=== PATIENT | female | born 1960 | race Caucasian/White ===

== ENCOUNTER 2016-12-15 05:11 | Emergency (ER) | payer BC ==
[~2016-12-15] VITALS: Ht 170.2 cm; Wt 86.2 kg
[~2016-12-15 05:11] MED LIST: ACET1TAB43 PO; CALC-250 PO; CALC1TAB4 PO; ESTR1TAB27 PO; ESTRAD; FISH1CAP15 PO; IBUP-1773 PO; MDR10T; MEDR5TAB4 PO; OMEP-10; ROSU5TAB PO
--- OUTSIDE RECORDS SUMMARY | 2016-12-15 05:18 | XMS REPORT | Continuity of Care Document ---
Author Author [facility] Organization [facility] Address Unknown Phone Unavailable Allergies Active Description Code Type Severity Reaction Onset Reported/Identified Relationship to Patient Clinical Status Yes hydrocodone [id number] Drug Allergy Unknown N/A 08/12/2008 Yes hydrocodone [id number] Drug Allergy Moderate SEVERE GI UPSET 02/02/2016 Medications Problems Date Dx Coded Attending Type Code Diagnosis Diagnosed By 01/09/2015 Ot 401.9 01/09/2015 Ot 782.0 01/09/2015 Ot 782.3 01/09/2015 Ot 782.0 01/09/2015 Ot 723.1 01/09/2015 Ot 782.0 01/09/2015 FANY HA HADOOP ADMINISTRATOR Ot 627.1 01/09/2015 FANY HA HADOOP ADMINISTRATOR Ot V72.31 01/09/2015 FANY HA HADOOP ADMINISTRATOR Ot 610.0 01/09/2015 FANY HA HADOOP ADMINISTRATOR Ot 793.89 01/09/2015 THUAN MCPHERSON, BEVERLY J Ot 272.4 01/09/2015 THUAN MCPHERSON, BEVERLY J Ot 782.3 01/09/2015 THUAN MCPHERSON, BEVERLY J Ot V58.69 01/09/2015 THUAN MCPHERSON, BEVERLY J Ot V58.83 01/09/2015 THUAN MCPHERSON, BEVERLY J Ot 272.1 01/09/2015 THUAN MCPHERSON, BEVERLY J Ot 272.4 01/09/2015 THUAN MCPHERSON, BEVERLY J Ot 397.0 01/09/2015 THUAN MCPHERSON, BEVERLY J Ot 416.8 01/09/2015 THUAN MCPHERSON, BEVERLY J Ot 424.0 01/09/2015 THUAN MCPHERSON, BEVERLY J Ot 782.3 01/09/2015 FANY HA HADOOP ADMINISTRATOR Ot V76.12 01/30/2015 FANY HA HADOOP ADMINISTRATOR Ot V76.12 04/03/2015 CAMILA SHEIKH DO Ot 627.1 02/02/2016 CAMILA SHEIKH DO Ot 627.1 POSTMENOPAUSAL BLEEDING 02/02/2016 DAYANA SHEIKH DOA C Ot N95.0 POSTMENOPAUSAL BLEEDING 02/02/2016 SHEIKH DAYANA MELVINA C Ot Z01.812 ENCOUNTER FOR PREPROCEDURAL LABORATORY E 02/02/2016 SHEIKH CAMILA MELVIN C Ot Z11.2 ENCOUNTER FOR SCREENING FOR OTHER BACTER 02/03/2016 DAYANA SHEIKH DOA C Ot N95.0 POSTMENOPAUSAL BLEEDING 02/03/2016 SHEIKH CAMILA MELVIN Ot Z01.812 ENCOUNTER FOR PREPROCEDURAL LABORATORY E 02/03/2016 SHEIKH CAMILA MELVIN C Ot Z11.2 ENCOUNTER FOR SCREENING FOR OTHER BACTER 02/04/2016 SHEIKH CAMILA MELVIN C Ot Z12.31 ENCNTR SCREEN MAMMOGRAM FOR MALIGNANT NE 02/05/2016 SHEIKH CAMILA MELVIN Ot Z12.31 ENCNTR SCREEN MAMMOGRAM FOR MALIGNANT NE 02/05/2016 SHEIKH DAYANA MELVINA C Ot N95.0 POSTMENOPAUSAL BLEEDING 02/05/2016 CAMILA SHEIKH DO Ot T83.721A EXPOSURE OF IMPLNT VAG PRSTHT MTRL INTO 02/05/2016 SHEIKH DAYANA MELVINA C Ot Z79.890 HORMONE REPLACEMENT THERAPY (POSTMENOPAU 02/17/2016 SHEIKH DO CAMILA C Ot N95.0 POSTMENOPAUSAL BLEEDING 02/17/2016 DAYANA SHEIKH DOA C Ot T83.721A EXPOSURE OF IMPLNT VAG PRSTHT MTRL INTO 02/17/2016 SHEIKH DAYANA MELVINA C Ot Z79.890 HORMONE REPLACEMENT THERAPY (POSTMENOPAU 02/17/2016 CAMILA SHEIKH DO Ot Z12.31 ENCNTR SCREEN MAMMOGRAM FOR MALIGNANT NE 02/19/2016 SHEIKH DAYANA MELVINA C Ot N95.0 POSTMENOPAUSAL BLEEDING 02/19/2016 SHEIKH DAYANA MELVINA C Ot T83.721A EXPOSURE OF IMPLNT VAG PRSTHT MTRL INTO 02/19/2016 KORI MELVIN CAMILA C Ot Z79.890 HORMONE REPLACEMENT THERAPY (POSTMENOPAU 04/06/2016 DAYANA SHEIKH DOA C Ot Z12.31 ENCNTR SCREEN MAMMOGRAM FOR MALIGNANT NE 04/07/2016 LOS WYTAT HADOOP ADMINISTRATOR Ot 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 04/07/2016 LOS WYATT HADOOP ADMINISTRATOR Ot 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 04/21/2016 LOS WYATT HADOOP ADMINISTRATOR Ot 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 09/28/2016 THUAN MCPHERSON, BEVERLY Wei Ot 272.1 PURE HYPERGLYCERIDEMIA 09/28/2016 THUAN MCPHERSON, BEVERLY Wei Ot 272.4 HYPERLIPIDEMIA NEC/NOS 09/28/2016 THUAN MCPHERSON, BEVERLY Wei Ot 397.0 TRICUSPID VALVE DISEASE 09/28/2016 THUAN MCPHERSON, BEVERLY Wei Ot 416.8 CHR PULMON HEART DIS NEC 09/28/2016 THUAN MCPHERSON, BEVERLY Wei Ot 424.0 MITRAL VALVE DISORDER 09/28/2016 THUAN MCPHERSON, BEVERLY Wei Ot 782.3 EDEMA 09/28/2016 DAYANA SHEIKH DOA C Ot 627.1 POSTMENOPAUSAL BLEEDING 09/28/2016 LOS WYATT HADOOP ADMINISTRATOR Ot 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 10/05/2016 LOS WYATT HADOOP ADMINISTRATOR Ot 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 Visit Date/Time Discharge Status Pt. Type Provider Facility Loc./Unit Complaint [id number] 02/05/2016 11:30:00 2015 16:45:00 DIS Outpatient CAMILA SHEIKH DO [facility] EXPOSURE OF MESH; PMB [id number] 02/02/2016 09:27:00 2015 10:27:00 DIS Outpatient CAMILA SHEIKH DO [facility] PREOP [id number] 02/02/2015 14:21:00 2014 23:59:59 CLS Outpatient CAMILA SHEIKH DO [facility] RAD POSTMENOPAUSAL BLEEDING [id number] 01/08/2015 08:41:00 2014 23:59:59 CLS Outpatient FANY HA [facility] RAD [id number] 04/03/2014 08:31:00 2013 23:59:59 CLS Outpatient BEVERLY LAROSE MD [facility] CARD UNEXPLAINED EDEMA [id number] 03/12/2014 09:40:00 2013 23:59:59 CLS Outpatient BEVERLY LAROSE MD [facility] CARD [id number] 09/09/2013 12:40:00 2012 23:59:59 CLS Outpatient FANY HA [facility] RAD [id number] 08/21/2013 09:41:00 2012 23:59:59 CLS Outpatient FANY HA [facility] RAD [id number] 04/06/2016 07:33:00 ACT Outpatient LOS WYATT HADOOP ADMINISTRATOR [facility] RAD THYROID NODULES [id number] 02/02/2016 08:39:00 ACT Outpatient CAMILA SHEIKH DO [facility] RAD [id number] 02/08/2012 10:37:00 Document Registration [id number] 02/07/2012 14:27:00 Document Registration [id number] 02/06/2012 10:11:00 Document Registration
[2016-12-15] MEDS ORDERED: THYR65TA5 PO (05:22)
[2016-12-15] MEDS ORDERED: EPINEPHrine INJECTION 1 MG/ML AMP IM ONE (05:30)
[2016-12-15] MEDS ORDERED: FAMOTIDINE 20MG/2ML IV (PEPCID) IVP ONE (05:30)
[2016-12-15] MEDS ORDERED: diphenhydrAMINE 50 MG/ML INJ (BENADRYL) IVP ONE (05:30)
[2016-12-15] MEDS ORDERED: methylPREDNISolone 125 MG (Solu-MEDROL) VIAL IVP ONE (05:30)
[2016-12-15] MEDS ORDERED: PRD20T PO (05:32)
--- NOTE | 2016-12-15 05:32 | ED Integumentary General ---
General Chief Complaint: Allergic Reaction Stated Complaint: ALLERGIC RXN Nursing Triage Note: intermittant rash/itching since monday am. Source: patient Exam Limitations: no limitations History of Present Illness Time seen by provider: 05:27 Initial Comments Patient complains of generalized pruritus and urticaria for the past 4 days. This morning she woke up with her lip swollen she became concerned and came here for evaluation. She is taking Benadryl without relief. She is unaware of any allergen exposure. She denies shortness of breath or difficulty swallowing. Allergies and Home Medications Allergies Coded Allergies: hydrocodone (Verified Allergy, Intermediate, SEVERE GI UPSET, 02/02/16) Home Medications Estradiol 1 Mg Tablet 1 MG PO DAILY (Reported) Medroxyprogesterone Acetate 5 Mg Tablet 5 MG PO DAILY (Reported) Prednisone 20 Mg Tab #6 20 MG PO BID Prescribed by: CARMEN PHAM on 12/15/16 0532 Thyroid,Pork 65 Mg Tablet #30 1 TAB PO UD (Reported) Constitutional: no symptoms reported EENTM: mouth swelling Respiratory: no symptoms reported Cardiovascular: no symptoms reported Skin: pruritus rash Psychiatric/Neurological: No Symptoms Reported All Other Systems Reviewed Negative Unless Noted: Yes Past Hlciqwr-Bmxcqc-Yuvswe Hx Patient Social History Alcohol Use: Denies Use Recreational Drug Use: No Smoking Status: Never a Smoker 2nd Hand Smoke Exposure: No Recent Foreign Travel: No Contact w/Someone Who Travel: No Recent Infectious Disease Expo: No Recent Hopitalizations: No Immunizations Up To Date Tetanus Booster (TDap): Unknown Seasonal Allergies Seasonal Allergies: No Surgeries HX Surgeries: No (D&C, ANTERIOR REPAIR WITH MESH) Surgeries: Bladder Surgery Respiratory Hx Respiratory Disorders: No Cardiovascular Hx Cardiac Disorders: Yes Cardiac Disorders: High Cholesterol Neurological Hx Neurological Disorders: No Reproductive System : No Hx Reproductive Disorders: Yes (POST MENOPAUSAL BLEEDING) HIV/AIDS: No Female Reproductive Disorders: Menstrual Problems 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 EXPERIENCE History: Menopausal Genitourinary Hx Genitourinary Disorders: No Gastrointestinal Hx Gastrointestinal Disorders: No Musculoskeletal Hx Musculoskeletal Disorders: No Endocrine Hx Endocrine Disorders: No HEENT HX ENT Disorders: Yes (CONTACTS, DENTURES) Loss of Vision: Bilateral Hearing Impairment: Denies Cancer Hx Cancer: No Psychosocial Hx Psychiatric Problems: No Integumentary HX Skin/Integumentary Disorder: No Blood Transfusions Hx Blood Disorders: No Reviewed Nursing Assessment Reviewed/Agree w Nursing PMH: Yes Physical Exam Vital Signs Vital Sign - Last 12Hours 12/15/16 05:22 Temp 97.1 Pulse 92 Resp 18 B/P 147/87 Pulse Ox 98 O2 Delivery Room Air Capillary Refill : Less Than 3 Seconds General Appearance: WD/WN mild distress HEENT: PERRL/EOMI pharynx normal other (lips are swollen) Cardiovascular: regular rate, rhythm Respiratory: lungs clear normal breath sounds Gastrointestinal: soft Extremities: other (hands are swollen) Neurologic/Psychiatric: alert normal mood/affect Skin: rash (generalized urticaria) Progress/Results/Core Measures Results/Orders My Orders Orders-CARMEN PHAM MD Diphenhydramine Injection (Benadryl Inje (12/15/16 05:30) Famotidine Injection (Pepcid Injection) (12/15/16 05:30) Methylprednisolone Sod Succ (Solu-Medrol (12/15/16 05:30) Epinephrine 1 Mg Injection (Adrenalin I (12/15/16 05:30) Saline Lock/Iv-Start (12/15/16 05:28) Medications Given in ED Current Medications Medications Dose Ordered Sig/David Route Start Time Stop Time Status Last Admin Dose Admin Diphenhydramine HCl 50 mg ONCE ONCE IVP 12/15/16 05:30 12/15/16 05:31 DC 12/15/16 05:32 50 MG Epinephrine HCl 0.3 mg ONCE ONCE IM 12/15/16 05:30 12/15/16 05:31 DC 12/15/16 05:33 0.3 MG Famotidine 20 mg ONCE ONCE IVP 12/15/16 05:30 12/15/16 05:31 DC 12/15/16 05:32 20 MG Methylprednisolone Sodium Succinate 125 mg ONCE ONCE IVP 12/15/16 05:30 12/15/16 05:31 DC 12/15/16 05:32 125 MG Vital Signs/I&O Vital Sign - Last 12Hours 12/15/16 12/15/16 05:22 05:41 Temp 97.1 Pulse 92 111 Resp 18 20 B/P 147/87 175/78 Pulse Ox 98 100 O2 Delivery Room Air Room Air Blood Pressure Mean: 107 Progress Note : Time: 05:59 Progress Note Itching has resolved. Hives clearing. Swelling decreased. Somewhat shaky after epinephrine. Will observe for another 30 minutes if continues to improve okay for discharge. Departure Impression Impression: Primary Impression: Acute urticaria Disposition: HOME, SELF-CARE Condition: Stable Departure-Patient Inst. Decision time for Depature: 06:00 Referrals: SEVERO WYATT DO (PCP/Family) Primary Care Physician Patient Instructions: Ray Cat Prednisone 20 Mg Tab20 Mg PO BID #6 TAB Prov:CARMEN PHAM MD 12/15/16 CARMEN PHAM MD Dec 15, 2016 05:32
[2016-12-15 05:41] VITALS: BP 175/78
[2016-12-15 06:11] VITALS: BP 141/73
[2016-12-15 06:32] VITALS: BP 144/96
== END 2016-12-15 06:31 | disposition home or self-care (01) ==
LOC: EDUNIT# 05:11 → ER 05:14
DX: L50.9 Urticaria, unspecified (principal)
CPT/HCPCS: 96372; 96374; 96375

== ENCOUNTER → 2017-09-15 | Outpatient (CLI) | payer BC ==
[~2017-09-15] MED LIST changes: +PRD20T PO; +THYR65TA5 PO
--- NOTE | 2017-09-15 16:07 | Diagnostic Imaging Report ---
PROCEDURE: MRI lumbar spine. TECHNIQUE: Multiplanar, multisequence MRI of the lumbar spine was performed without contrast. INDICATION: Low-back pain with left sciatica. FINDINGS: Sagittal images show good alignment of the vertebral bodies. Body height is well maintained. Marrow signal is normal without compression fractures. There is mild desiccation of the L4-L5 disc. There is a small lateral disc protrusion into the lateral recesses and neural foramen on the right. This is causing mild encroachment at this time. There is no encroachment seen on the left. The remaining discs appear normal. There is no hypertrophic facet disease. No spinal stenosis. The conus medullaris and cauda equina are normal. The paraspinal soft tissues appear normal. There is noted degenerative disc disease at T11-T12 with the desiccation of disc and loss of disc space height. There is hypertrophic bony change anteriorly. There is mild carlos based disc bulge without significant encroachment upon the cord. IMPRESSION: 1. There is a very small disc protrusion eccentric to the right extending into the neural foramen causing very mild encroachment. 2. Degenerative disc disease at T11-T12 with loss of disc space height with sclerosis of the endplates and minimal broad-based bulge with no encroachment upon the thoracic cord. Dictated by: Dictated on workstation # [id number]
== END ==
LOC: RAD 14:22
PROVIDERS: ATTEND Physician Assistant
DX: M51.26 Other intervertebral disc displacement, lumbar region (principal); M51.34 Other intervertebral disc degeneration, thoracic region; G95.89 Other specified diseases of spinal cord
CPT/HCPCS: 72148

== ENCOUNTER → 2019-07-02 | Outpatient (CLI) | payer BC ==
--- NOTE | 2019-07-02 17:31 | Diagnostic Imaging Report ---
INDICATION: Routine screening. COMPARISON: Comparison is made with prior mammogram of 02/02/2016 and 01/08/2015. 2-D and 3-D bilateral screening mammography was performed. The current study was also evaluated with a Computer Aided Detection (CAD) system. 3-D tomosynthesis was also performed and reviewed. FINDINGS: Both breasts are heterogeneously dense, limiting the sensitivity of mammography. No mass or malignant-appearing microcalcifications are seen. Occasional benign calcifications are noted. The axillae are unremarkable. IMPRESSION: No mammographic features suspicious for malignancy are identified. ACR BI-RADS Category 2: Benign findings. Result letter will be mailed to the patient. Note: At least 10% of breast cancer is not imaged by mammography. Dictated by: Dictated on workstation # [id number]
== END ==
LOC: RAD 13:53
PROVIDERS: ATTEND Obstetrics & Gynecology
DX: Z12.31 Encounter for screening mammogram for malignant neoplasm of breast (principal)
CPT/HCPCS: 77067

== ENCOUNTER → 2020-04-03 | Outpatient (CLI) | payer BC ==
--- NOTE | 2020-04-03 14:32 | Diagnostic Imaging Report ---
PROCEDURE: US Non-ob pelvis comp/trans. TECHNIQUE: Multiple realtime grayscale images were obtained of the pelvis in various projections endovaginally. Transabdominal imaging was also performed. INDICATION: Postmenopausal vaginal bleeding. COMPARISON: 02/02/2015 FINDINGS: The uterus is normal in size measuring 9.1 x 4.5 x 5.5 cm. No focal uterine masses are seen. Endometrium is normal in thickness measuring 5 mm. The ovaries are not seen transabdominally or endovaginally due to bowel gas. No free fluid is seen. IMPRESSION: 1. No uterine masses or endometrial thickening. 2. The ovaries are not seen bilaterally. Dictated by: Dictated on workstation # [id number]
== END ==
LOC: RAD 11:31
PROVIDERS: ATTEND Obstetrics & Gynecology
DX: N95.0 Postmenopausal bleeding (principal)
CPT/HCPCS: 76830; 76856

== ENCOUNTER 2020-07-09 09:27 | Outpatient (RCR) | payer BC | END 2020-10-07 | disposition home or self-care (01) | LOC: CARD 09:27 | PROVIDERS: ATTEND Nurse Practitioner Family | DX: I49.9 Cardiac arrhythmia, unspecified (principal) | CPT/HCPCS: 93225; 93226 ==

== ENCOUNTER → 2020-09-22 | Outpatient (CLI) | payer BC | LOC: CARD 13:00 | PROVIDERS: ATTEND Nurse Practitioner Family | DX: I51.7 Cardiomegaly (principal) | CPT/HCPCS: 93306 ==

== ENCOUNTER → 2022-01-04 | Outpatient (CLI) | payer OTHER ==
--- NOTE | 2022-01-04 09:57 | Diagnostic Imaging Report ---
INDICATION: Back pain. COMPARISON: None. FINDINGS: Frontal, lateral, and oblique views of the lumbar spine were obtained. Alignment and vertebral heights are maintained. Oblique views suggest a possible pars defect on the right at L5. There is no fracture or destructive process. Mild multilevel degenerative disease is noted in the lumbar spine. This consists primarily of facet arthropathy of the lower lumbar spine. Calcified aortic atherosclerosis is also noted. IMPRESSION: 1. No acute fracture or dislocation of the lumbar spine. 2. Possible right L5 pars defect and mild multilevel degenerative changes. Dictated by: Dictated on workstation # [id number]
== END ==
LOC: RAD 08:59
PROVIDERS: ATTEND Nurse Practitioner Family
DX: M47.27 Other spondylosis with radiculopathy, lumbosacral region (principal)
CPT/HCPCS: 72110

== ENCOUNTER → 2023-08-14 | Outpatient (CLI) | payer OTHER ==
[~2023-08-14] MED LIST changes: +ACET-11 PO; -ACET1TAB43 PO
--- NOTE | 2023-08-14 15:04 | Diagnostic Imaging Report ---
INDICATION: Routine screening. COMPARISON: 07/02/2019 and 02/02/2016. TECHNIQUE: 2D and 3D bilateral screening mammography was performed with CAD. FINDINGS: Both breasts are heterogeneously dense, limiting the sensitivity of mammography. The parenchymal pattern is stable. No mass or malignant-appearing microcalcifications are identified. The axillae are unremarkable. IMPRESSION: No mammographic features suspicious for malignancy are identified. ACR BI-RADS Category 1: Negative. Result letter will be mailed to the patient. Note: At least 10% of breast cancer is not imaged by mammography. Dictated by: Dictated on workstation # [id number]
== END ==
LOC: RAD 08:22
PROVIDERS: ATTEND Nurse Practitioner Family
DX: Z12.31 Encounter for screening mammogram for malignant neoplasm of breast (principal)
CPT/HCPCS: 77063; 77067